=== PATIENT | male | born 1995 | race Asian ===

== ENCOUNTER 2018-10-04 19:29 | Emergency (ER) | payer OTHER ==
[~2018-10-04] VITALS: Ht 177.8 cm; Wt 99.6 kg
[2018-10-04 19:43] VITALS: BP 121/75
[2018-10-04] MEDS ORDERED: KETOROLAC 30 MG/1 ML IM ONE (20:00)
== END 2018-10-04 21:24 | disposition home or self-care (01) ==
LOC: ED 21:00
DX: M54.12 Radiculopathy, cervical region (principal)
CPT/HCPCS: 72050; 99283; J7512